=== PATIENT | female | born 1965 | race Caucasian/White ===

== ENCOUNTER 2017-11-18 16:29 | Inpatient (IN) | payer MEDICAID ==
[~2017-11-18] VITALS: Ht 157.5 cm; Wt 90.3 kg
[~2017-11-18 16:29] MED LIST: ABILIFY10 MG PO; ABILIFY15 MG PO; ABILIFY20 MG; ABILIFY20 MG PO; AMOXICILLIN 50500 M1 PO; AMOXIL 875 MG875 M1 PO; ATIVAN1 MG PO; BACLOFEN 10 MG10 MG PO; BACTRIM DS TAB1 EACH PO; BENZTROPINE MES1 MG; BENZTROPINE MES1 MG PO; BUDEPRION XL300 MG; BUDEPRION XL300 MG PO; CELEXA 20 MG TA20 M1 PO; CELEXA 20 MG TA20 MG PO; CLONAZEPAM; CLONAZEPAM 1 MG1 M1; CLONAZEPAM 1 MG1 M1 PO; CLONAZEPAM PO; COLACE 100 MG100 MG; COLACE 100 MG100 MG PO; COLACE100 MG PO; CYCLOBENZAPRINE; DESYREL100 MG; DESYREL100 MG PO; DOCUSATE SODIU100 MG PO; ESKALITH300 MG PO; FLAGYL500 MG PO; FLEXERIL PO; GABAPENTIN 100100 MG PO; GLUCOPHAGE500 MG PO; HAIR, SKIN & N1 EAC1 PO; HYDROCHLOROTHIA25 M1 PO; HYDROCODON-ACE1 EAC7 PO; JANUVIA100 MG PO; K-DUR10 ME1 PO; KEFLEX500 M1 PO; LISINOPRIL10 MG; LISINOPRIL20 MG; LITHIUM CARBON300 M7; LITHIUM CARBON300 M7 PO; LITHIUM CARBON600 MG; LORTAB 5 MG/5001 TAB PO; MOBIC7.5 M1 PO; NAPROSYN500 MG PO; NEURONTIN 400M400 M2 PO; NORCO 5-325 TA1 EACH PO; OMEPRAZOLE; PERCOCET 5-3251 EACH PO; PRENATAL PO; PRENATAL VITAM1 EAC6; PREVACID15 MG; PREVACID15 MG PO; PRILOSEC 20 MG20 MG PO; PRINZIDE 20-121 EACH; PROVENTIL PO; ROBAXIN 750 MG750 M1 PO; SYMBICORT160 MCG/4.; SYMBICORT80 MCG/4.1; SYMBICORT80 MCG/4.1 INH; ULTRAM 50MG TAB50 MG PO; VITAMIN D-32000 UNIT PO; WELLBUTRIN SR150 MG PO; ZOCOR 20 MG TAB20 M1 PO; ZYPREXA; ZYRTEC 10 MG TA10 MG PO; ZYRTEC10 M2 PO
[2017-11-18 16:42] VITALS: BP 137/81
[2017-11-18] MEDS ORDERED: DICLOFENAC SOD50 M1 PO (16:47)
[2017-11-18] MEDS ORDERED: PROAIR HFA8.5 GM INH (16:48)
[2017-11-18] MEDS ORDERED: ZANAFLEX4 MG PO (16:48)
[2017-11-18] MEDS ORDERED: IRON325 PO (16:49)
[2017-11-18] MEDS ORDERED: LIPITOR10 MG PO (16:49)
[2017-11-18] MEDS ORDERED: SYMBICORT80 MCG/4.1 INH (16:49)
[2017-11-18] MEDS ORDERED: FLONASE 0.05%50 MCG NASAL (16:49)
[2017-11-18] MEDS ORDERED: TRAZODONE HCL100 MG PO (16:50)
[2017-11-18] MEDS ORDERED: SINGULAIR 10 MG10 M1 PO (16:50)
[2017-11-18] MEDS ORDERED: GLUCOPHAGE XR750 MG PO (16:50)
[2017-11-18] MEDS ORDERED: VITAMIN D3400 UNIT PO (16:50)
[2017-11-18] MEDS ORDERED: UNICOMPLEX M TA1 TA1 PO (16:51)
[2017-11-18] MEDS ORDERED: FISH OIL 1,001000 M2 PO (16:51)
[2017-11-18] MEDS ORDERED: HEARTBURN TREAT15 MG PO (16:51)
[2017-11-18] MEDS ORDERED: CLONAZEPAM 0.50.5 M1 PO (16:52)
[2017-11-18] MEDS ORDERED: ARIPIPRAZOLE15 MG PO (16:52)
[2017-11-18] MEDS ORDERED: BENZTROPINE MES1 MG PO (16:52)
[2017-11-18] MEDS ORDERED: LEXAPRO 10 MG T10 M1 PO (16:52)
[2017-11-18] MEDS ORDERED: AMITRIPTYLINE100 MG PO (16:53)
[2017-11-18 17:13] LABS: ABSOLUTE LYMPHOCYTES 2.9 thou/uL (0.8-5.3); ABSOLUTE MONOCYTES 1.1 thou/uL (0.0-1.2); ABSOLUTE NEUTROPHILS 5.6 thou/uL (1.6-8.1); BASOPHILS 0.4 %; EOSINOPHILS 0.4 %; HEMATOCRIT 38.3 % (37.0-47.0); HEMOGLOBIN 12.7 gm/dL (12.0-15.0); LYMPHOCYTES 29.9 %; MCH 29.1 pg (26.0-34.0); MCHC 33.1 g/dL (28.0-37.0); MCV 87.7 fL (80.0-100.0); MONOCYTES 11.3 %; MPV 7.3 fl. (7.2-11.1); NUCLEATED RBCS 0 /100WBC; PLATELET COUNT* 325 thou/uL (150-400); RBC 4.36 mil/uL (4.20-5.00); WBC 9.7 thou/uL (4.0-11.0)
[2017-11-18 17:23] LABS: ANION GAP 6 mmol/L (7-16); BUN 12 mg/dL (7-18); CALCIUM 8.9 mg/dL (8.5-10.1); CHLORIDE 92 mmol/L (98-107); CO2 30 mmol/L (21-32); CREATININE 0.7 mg/dL (0.6-1.3); GLUCOSE 149 mg/dL (70-99); POTASSIUM 4.2 mmol/L (3.5-5.1); SODIUM 128 mmol/L (136-145)
[2017-11-18 17:28] LABS: ALBUMIN 3.1 g/dL (3.4-5.0); ALKALINE PHOSPHATASE 87 U/L (46-116); SGOT 16 U/L (15-37); SGPT 23 U/L (30-65); TOTAL BILIRUBIN 0.2 mg/dL (<0.1-1.0); TOTAL PROTEIN 7.1 g/dL (6.4-8.2); TROPONIN-I LEVEL <0.06 ng/mL (<0.06)
[2017-11-18 17:33] LABS: URINE BILIRUBIN NEGATIVE (Negative); URINE BLOOD NEGATIVE (Negative); URINE CLARITY CLEAR; URINE COLOR YELLOW; URINE GLUCOSE-RANDOM NEGATIVE (Negative); URINE KETONES NEGATIVE (Negative); URINE LEUKOCYTES-REFLEX NEGATIVE (Negative); URINE NITRITE-REFLEX NEGATIVE (Negative); URINE PROTEIN NEGATIVE (Negative); URINE SPECIFIC GRAVITY <= 1.005 (1.005-1.030); URINE UROBILINOGEN 0.2 E.U./dl (0.2-1.0)
[2017-11-18 19:34] VITALS: BP 122/83
[2017-11-18 19:55] VITALS: BP 133/71
[2017-11-19 04:21] LABS: CALCIUM 9.1 mg/dL (8.5-10.1); CREATININE 0.7 mg/dL (0.6-1.3); MAGNESIUM 1.9 mg/dL (1.8-2.4); POTASSIUM 4.9 mmol/L (3.5-5.1)
[2017-11-19 04:40] LABS: HEMOGLOBIN 13.8 gm/dL (12.0-15.0); MCHC 32.9 g/dL (28.0-37.0); MCV 88.3 fL (80.0-100.0); MPV 7.5 fl. (7.2-11.1); RBC 4.75 mil/uL (4.20-5.00); RDW-CV 16.3 % (10.5-14.5); WBC 7.7 thou/uL (4.0-11.0)
--- NOTE | 2017-11-19 05:12 | NUR ---
PATIENT ARRIVED TO UNIT AT 1947 FROM THE ER. ALERT AND ORIENTED X 4. VITALS STABLE ON 2L OF OXYGEN. ORIENTED TO ROOM AND STAFF. FLUIDS INFUSING PER ORDER. UP SBA TO BATHROOM. VOIDING FREQUENTLY. NONPRODUCTIVE COUGH. EDUCATED ON FALL PREVENTION. HOURLY ROUNDS. NURSING WILL CONTINUE TO MONITOR.
[2017-11-19 09:59] VITALS: BP 118/70
[2017-11-19 16:49] VITALS: BP 121/69
--- NOTE | 2017-11-19 17:18 | NUR ---
ASSUMED CARE OF PATIENT AFTER MORNING REPORT. ALERT AND ORIENTED X4. ASSESSMENT COMPLETED AND CHARTED. VSS ON 2 LITERS 02. FLUIDS INFUSED AND SALINE LOCKED AFTER LAST BAG ORDERED. ANTIBIOTIC AND SOLUMEDROL ADMINISTERED ORDER. PATIENT HAD CONCERNS ABOUT HER COUGH. MUCINEX, TESSALON PEARLS, AND CEPACOL LOZENGES ORDERED AND GIVEN. PATIENT HAS HAD BREATHING TREATMENTS GIVEN BY RT TODAY. RESTING COMFORTABLY IN BED AT THIS TIME. HOURLY ROUNDS MAINTAINED, CALL LIGHT WITHIN REACH, NURSING WILL CONTINUE TO MONITOR.
--- NOTE | 2017-11-19 17:33 | NUR ---
ASSUMED CARE OF PATIENT AFTER MORNING REPORT. ALERT AND ORIENTED X4. ASSESSMENT COMPLETED AND CHARTED. VSS ON ROOM AIR. FLUIDS INFUSED ORDERED. PAIN HAS BEEN MANAGED WITH IV PAIN MEDICAION. NO COMPLAINTS OF NAUSEA OR SOA. PATIENTS FAMILY CAME TO THE ROOM AND SHORTLY AFTER THAT PATIENT WAS SEEN TRYING TO LEAVE THROUGH THE FIRE ESCAPE DOOR, SETTING OFF THE ALARM. PATIENT THEN WALKED QUICKLY AND QUIETLY PASSED THE NURSES STATION WITH HIS SHOES IN IN HIS HAND, LEAVING A TRAIL OF BLOOD WHERE HE HAD PULLED HIS IV OUT. THIS NIRSE ASKED HIM WHAT WAS WRONG HE PASSED BY BUT HE MADE NO EYE CONTACT AND CONTINUED TO LEAVE THE UNIT. PHYSICIAN AND NURSING NURSING PROJECT COORDINATOR NOTIFIED OF THIS EVENT. PATIENT LEFT THE UNIT AT 1720.
[2017-11-19 20:30] VITALS: BP 129/69
[2017-11-20 04:30] LABS: HEMATOCRIT 40.6 % (37.0-47.0); HEMOGLOBIN 13.2 gm/dL (12.0-15.0); MCH 28.7 pg (26.0-34.0); MCHC 32.5 g/dL (28.0-37.0); MCV 88.2 fL (80.0-100.0); MPV 7.6 fl. (7.2-11.1); RBC 4.6 mil/uL (4.20-5.00); RDW-CV 16.3 % (10.5-14.5); WBC 11.2 thou/uL (4.0-11.0)
[2017-11-20 04:59] LABS: CALCIUM 9.3 mg/dL (8.5-10.1); CREATININE 0.7 mg/dL (0.6-1.3); MAGNESIUM 1.8 mg/dL (1.8-2.4); POTASSIUM 4.7 mmol/L (3.5-5.1)
--- NOTE | 2017-11-20 06:19 | NUR ---
PATIENT HAS SLEPT OFF AND ON DURING THE NIGHT BUT RESTLESS AT TIMES. PATIENT DRINKING ALOT OF WATER. VSS ON 3L 02 VIA NASAL CANNULA. NO C/O SOA OR PAIN. PATIENT DOES STATE THAT HER COUGH IS NOW BECOMING SOMEWHAT PRODUCTIVE. PATIENT INSTRUCTED TO USE CALL LIGHT WHEN NEEDING ASSISTANCE. HOURLY ROUNDS MADE. WILL CONTINUE WITH PLAN OF CARE AND NURSING TO MONITOR.
[2017-11-20 08:00] VITALS: BP 121/68
--- NOTE | 2017-11-20 11:09 | EKG ---
[place] [address] ELECTROCARDIOGRAM REPORT Name: JOHN MENDOZA Room: [address] IN [facility].#: [id number] Admission: 11/18/17 Attend Phys: Philippe Wallace MD Discharge: Date of : 63 Report #: [id number] THIS REPORT FOR: //name// [facility] ED Test Date: 2017-11-18 Test Time: 17:12:39 Pat Name: JOHN MENDOZA Department: Room: Gender: F Crew Leader Gluing: MS : 1965 Requested By: Ai Hayes Order Number: [id number] MD: Andrew Diaz Measurements Intervals [place] Rate: 87 P: 53 UT: 161 QRS: 24 QRSD: 89 T: 35 QT: 356 QTc: 429 Interpretive Statements Sinus rhythm Baseline wander in lead(s) I,V1,V2,V4 Compared to ECG 09/13/2011 11:56:55 No significant changes Electronically Signed On 11-20-2017 11:09:46 CDT by Andrew Diaz [email or web address] <ELECTRONICALLY SIGNED> By: Andrew Diaz MD, [facility] 11/20/17 1109 171 171 Andrew Diaz MD, [facility] /EPI
--- NOTE | 2017-11-20 14:42 | NUR ---
SPOKE WITH PT. SHE WAS UP IN ROOM PACKING HER THINGS TO GO TO 3W. SHE SAID SHE LIVES IN AN APT. HER S.O. LIVES WITH HER. SHE IS INDEPENDENT AT HOME. SHE DOES NOT HAVE A CAR. HER S.O. DOES NOT EITHER. HE HAS A BICYCLE. PT.'S MOM DRIVES HER ON [place]. NO HX OF DME. NO HOME O2. SHE HAS A CELL PHONE. SHE DECLINED [employer]. 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 CM WILL FOLLOW.
[2017-11-20 16:10] VITALS: BP 137/69
--- NOTE | 2017-11-20 17:50 | NUR ---
PT TRANSFERED TO ROOM 210 THIS AFTERNOON, RECIEVED REPORT FROM MARQUIS KUMAR. MO SALINAS REVIEWED AND AGREE WITH THE CHARTING. PT A/O X4, ON 2L O2 PER NC. UP AD WYATT IN ROOM. INSULIN GIVEN PER AUG. PT CONCERNED THAT SHE HAS NOT HAD BM SINCE THU, MIRALAX GIVEN. PT USES CALL LIGHT APPROPRIALTY FOR NEEDS. RESTING IN ROOM AT THIS TIME. WILL CONTINUE WITH PLAN OF CARE.
[2017-11-20 20:00] VITALS: BP 177/60
[2017-11-20 22:00] VITALS: BP 136/70
[2017-11-21 00:39] VITALS: BP 141/75
--- NOTE | 2017-11-21 04:31 | NUR ---
ASSUMED PT CARE AT 1930. NURSING ASSESSMENT COMPLETED AT START OF SHIFT. PT VOICED NO CONCERNS THIS SHIFT. PT MED SURG STATUS. HOURLY ROUNDING COMPLETED, NO FALLS THIS SHIFT. CALL LIGHT REMAINS WITHIN REACH. PT PROGRESSING TOWARDS GOALS.
[2017-11-21 04:49] LABS: HEMOGLOBIN 13.5 gm/dL (12.0-15.0); MCH 28.9 pg (26.0-34.0); MCHC 33.1 g/dL (28.0-37.0); MCV 87.6 fL (80.0-100.0); MPV 7.5 fl. (7.2-11.1); RBC 4.68 mil/uL (4.20-5.00); RDW-CV 16.5 % (10.5-14.5); WBC 10.6 thou/uL (4.0-11.0)
[2017-11-21 05:08] LABS: CALCIUM 9.1 mg/dL (8.5-10.1); CREATININE 0.8 mg/dL (0.6-1.3); POTASSIUM 4.4 mmol/L (3.5-5.1)
--- NOTE | 2017-11-21 08:12 | NUR ---
PT RESTING IN BED, APPEARS ALERT O X 4, DENIES CHEST PAIN,SOB,, PAIN OR DISCOMFORT, O2 AT 1.5 L PER NC
[2017-11-21 08:19] VITALS: BP 137/72
[2017-11-21] MEDS ORDERED: PREDNISONE 10 M10 MG PO (11:29)
[2017-11-21 11:30] VITALS: BP 137/72; BP 157/77
[2017-11-21] MEDS ORDERED: CEFDINIR300 MG PO ×2 (12:32→12:35)
[2017-11-21 13:36] VITALS: BP 137/72
[2017-11-21 13:37] VITALS: BP 137/72
[2017-11-21 13:39] VITALS: BP 137/72
== END 2017-11-21 13:35 | disposition home or self-care (01) | DRG 189 ==
LOC: M.ERS 16:29 → M.TBA-ER 18:53 → M.ORTHSURG 18:53 → M.2W 11-20 14:21
PROVIDERS: Nurse Practitioner Family; ADMIT Internal Medicine
DX: J96.01 Acute respiratory failure with hypoxia (principal); J44.1 Chronic obstructive pulmonary disease with (acute) exacerbation; J45.901 Unspecified asthma with (acute) exacerbation; B37.0 Candidal stomatitis; E87.1 Hypo-osmolality and hyponatremia; E44.1 Mild protein-calorie malnutrition; E11.9 Type 2 diabetes mellitus without complications; I10 Essential (primary) hypertension; J20.8 Acute bronchitis due to other specified organisms; B19.20 Unspecified viral hepatitis C without hepatic coma; F31.9 Bipolar disorder, unspecified; E66.9 Obesity, unspecified; Z68.36 Body mass index [BMI] 36.0-36.9, adult; Z98.891 History of uterine scar from previous surgery; Z87.891 Personal history of nicotine dependence; Z79.51 Long term (current) use of inhaled steroids; Z79.84 Long term (current) use of oral hypoglycemic drugs; Z79.899 Other long term (current) drug therapy; Z88.8 Allergy status to other drugs, medicaments and biological substances

== ENCOUNTER 2017-12-31 12:16 | Emergency (ER) | payer MEDICAID ==
[~2017-12-31] VITALS: Ht 157.5 cm; Wt 85.3 kg
[~2017-12-31 12:16] MED LIST changes: +AMITRIPTYLINE100 MG PO; +ARIPIPRAZOLE15 MG PO; +CEFDINIR300 MG PO; +CLONAZEPAM 0.50.5 M1 PO; +DICLOFENAC SOD50 M1 PO; +FISH OIL 1,001000 M2 PO; +FLONASE 0.05%50 MCG NASAL; +GLUCOPHAGE XR750 MG PO; +HEARTBURN TREAT15 MG PO; +IRON325 PO; +LEXAPRO 10 MG T10 M1 PO; +LIPITOR10 MG PO; +PREDNISONE 10 M10 MG PO; +PROAIR HFA8.5 GM INH; +SINGULAIR 10 MG10 M1 PO; +TRAZODONE HCL100 MG PO; +UNICOMPLEX M TA1 TA1 PO; +VITAMIN D3400 UNIT PO; +ZANAFLEX4 MG PO
[2017-12-31] MEDS ORDERED: HEARTBURN RELIE10 MG PO (12:32)
[2017-12-31] MEDS ORDERED: MOBIC15 MG PO (12:33)
[2017-12-31] MEDS ORDERED: SYMBICORT80 MCG/4.1 INH (12:33)
[2017-12-31] MEDS ORDERED: CLARITIN10 MG PO (12:34)
[2017-12-31 12:59] LABS: HEMATOCRIT 43.3 % (37.0-47.0); HEMOGLOBIN 14.3 gm/dL (12.0-15.0); MCH 29.1 pg (26.0-34.0); MCHC 32.9 g/dL (28.0-37.0); MCV 88.3 fL (80.0-100.0); MPV 7.6 fl. (7.2-11.1); NUCLEATED RBCS 0 /100WBC; PLATELET COUNT* 345 thou/uL (150-400); RBC 4.91 mil/uL (4.20-5.00); RDW-CV 16.6 % (10.5-14.5); WBC 6.6 thou/uL (4.0-11.0)
[2017-12-31 13:09] LABS: CALCIUM 9.4 mg/dL (8.5-10.1); CREATININE 0.9 mg/dL (0.6-1.3); POTASSIUM 4.4 mmol/L (3.5-5.1)
[2017-12-31 13:20] LABS: ALBUMIN 3.5 g/dL (3.4-5.0); TOTAL BILIRUBIN 0.1 mg/dL (<0.1-1.0); TOTAL PROTEIN 7.6 g/dL (6.4-8.2)
[2017-12-31 13:44] LABS: ABSOLUTE LYMPHOCYTES 0.3 thou/uL (0.8-5.3); ABSOLUTE MONOCYTES 0.1 thou/uL (0.0-1.2); ABSOLUTE NEUTROPHILS 6.2 thou/uL (1.6-8.1)
[2017-12-31 13:45] LABS: PLATELET ESTIMATE ADEQUATE; POLYCHROMASIA Occasional
[2017-12-31] MEDS ORDERED: VENTOLIN HFA 1818 GM INH (14:00)
[2017-12-31] MEDS ORDERED: LEVAQUIN 750 M750 MG PO (14:00)
[2017-12-31] MEDS ORDERED: TESSALON PERLE100 MG PO (14:00)
[2017-12-31 14:11] VITALS: BP 157/53
--- NOTE | 2017-12-31 15:15 | EKG ---
[place] [address] ELECTROCARDIOGRAM REPORT Name: JOHN MENDOZA Room: [facility]#: [id number] Admission: 12/31/17 Attend Phys: Discharge: 12/31/17 Date of : 63 Report #: [id number] THIS REPORT FOR: //name// [facility] ED Test Date: 2017-12-31 Test Time: 13:37:23 Pat Name: JOHN MENDOZA Department: Room: Gender: F Food Production Manager: BRANDON : 1965 Requested By: Iggy Torres Order Number: [id number] MD: Jesse Arguelles Measurements Intervals [place] Rate: 102 P: 47 [place]: 159 QRS: 19 QRSD: 86 T: 30 QT: 325 QTc: 424 Interpretive Statements Sinus tachycardia Compared to ECG 11/18/2017 17:12:39 Sinus rhythm no longer present Electronically Signed On 12-31-2017 15:15:21 CDT by Jesse Arguelles [email or web address] <ELECTRONICALLY SIGNED> By: Jesse Arguelles MD, [facility] 12/31/17 1515 36 36 Jesse Arguelles MD, [facility] /EPI
== END 2017-12-31 14:12 | disposition home or self-care (01) ==
LOC: M.ERS 12:16
PROVIDERS: Nurse Practitioner Family
DX: J40 Bronchitis, not specified as acute or chronic (principal); I10 Essential (primary) hypertension; E11.9 Type 2 diabetes mellitus without complications; J44.9 Chronic obstructive pulmonary disease, unspecified; F31.9 Bipolar disorder, unspecified; E66.9 Obesity, unspecified; Z88.6 Allergy status to analgesic agent

== ENCOUNTER 2018-01-30 12:40 | Inpatient (IN) | payer MEDICAID ==
[~2018-01-30] VITALS: Ht 157.5 cm; Wt 88.5 kg
[~2018-01-30 12:40] MED LIST changes: +CLARITIN10 MG PO; +HEARTBURN RELIE10 MG PO; +LEVAQUIN 750 M750 MG PO; +MOBIC15 MG PO; +TESSALON PERLE100 MG PO; +VENTOLIN HFA 1818 GM INH
[2018-01-30 12:43] VITALS: BP 160/67
[2018-01-30 13:26] LABS: ABSOLUTE BASOPHILS 0.1 thou/uL (0.0-0.2); ABSOLUTE EOSINOPHILS 0.1 thou/uL (0.0-0.7); ABSOLUTE LYMPHOCYTES 1.6 thou/uL (0.8-5.3); ABSOLUTE MONOCYTES 0.9 thou/uL (0.0-1.2); ABSOLUTE NEUTROPHILS 6.3 thou/uL (1.6-8.1); BASOPHILS 0.9 %; HEMATOCRIT 39.6 % (37.0-47.0); HEMOGLOBIN 13.2 gm/dL (12.0-15.0); LYMPHOCYTES 17.9 %; MCH 28.7 pg (26.0-34.0); MCHC 33.3 g/dL (28.0-37.0); MCV 86.2 fL (80.0-100.0); MPV 7.7 fl. (7.2-11.1); NUCLEATED RBCS 0 /100WBC; PLATELET COUNT* 283 thou/uL (150-400); POLYS 70.2 %; RBC 4.59 mil/uL (4.20-5.00); RDW-CV 16.8 % (10.5-14.5)
[2018-01-30 13:37] LABS: ANION GAP 5 mmol/L (7-16); BUN 9 mg/dL (7-18); CALCIUM 9.1 mg/dL (8.5-10.1); CHLORIDE 94 mmol/L (98-107); CO2 29 mmol/L (21-32); CREATININE 0.7 mg/dL (0.6-1.3); GLUCOSE 159 mg/dL (70-99); SODIUM 128 mmol/L (136-145)
[2018-01-30 13:38] LABS: POTASSIUM 4.7 mmol/L (3.5-5.1)
[2018-01-30 13:44] LABS: ALBUMIN 3.3 g/dL (3.4-5.0); ALKALINE PHOSPHATASE 80 U/L (46-116); SGOT 24 U/L (15-37); SGPT 26 U/L (30-65); TOTAL BILIRUBIN 0.2 mg/dL (<0.1-1.0); TOTAL PROTEIN 7.3 g/dL (6.4-8.2); TROPONIN-I LEVEL <0.06 ng/mL (<0.06)
[2018-01-30 15:01] VITALS: BP 118/89
--- NOTE | 2018-01-30 18:34 | NUR ---
ALERT AND ORIENTED X4. UP STAND BY ASSIST IN ROOM. IV IS PATENT AND INFUSING. DENIES NEED FOR PAIN MEDICATION. DENIES NAUSEA. PATIENT HAS HAD SOME DIZZINESS SINCE ARRIVING TO FLOOR. TOLERATING DIET. VSS ON 2L O2. CALL LIGHT IS WITHIN REACH. HOURLY ROUNDS HAVE BEEN MAINTAINED SINCE ARRIVING TO FLOOR. NURSING WILL CONTINUE TO MONITOR.
[2018-01-30 20:30] VITALS: BP 143/83
--- NOTE | 2018-01-31 04:43 | NUR ---
UP WITH STAND BY ASSIST TO BATHROOM. ALERT AND ORIENTED X4. O2 SAT 91 % ON O2 AT 2L/NC AT REST. CONTINUES ON BREATHING TREATMENT, SOLUMEDROL AND IV ANTIBIODICS. CALL LIGHT WITHIN REACH. BEDALARM ON.
[2018-01-31 08:00] VITALS: BP 111/64
--- NOTE | 2018-01-31 10:31 | EKG ---
[place] [address] ELECTROCARDIOGRAM REPORT Name: JOHN MENDOZA Room: [address] ADM IN M.R.#: [id number] Admission: 01/30/18 Attend Phys: Shen Bourgeois, Discharge: Date of : 63 Report #: [id number] THIS REPORT FOR: //name// [facility] ED Test Date: 2018-01-30 Test Time: 13:08:24 Pat Name: JOHN MENDOZA Department: Room: [facility] Gender: F Desilverizer: MS : 1965 Requested By: Kyaw Clements Order Number: [id number] MD: Tonio Cavanaugh Measurements Intervals [place] Rate: 96 P: 46 RI: 200 QRS: 28 QRSD: 81 T: 53 QT: 345 QTc: 436 Interpretive Statements Sinus rhythm Borderline prolonged RI interval Baseline wander in lead(s) V1 Compared to ECG 12/31/2017 13:37:23 Sinus tachycardia no longer present Electronically Signed On 01-31-2018 10:31:35 CDT by Tonio Cavanaugh [email or web address] <ELECTRONICALLY SIGNED> By: Ewelina Cavanaugh MD, [facility] 01/31/18 1031 1308 1308 Ewelina Cavanaugh MD, [facility] /EPI
[2018-01-31 15:31] VITALS: BP 116/57
--- NOTE | 2018-01-31 19:44 | NUR ---
PATIENT REMAINED ALERT AND ORIENTED X'S 4. VITAL SIGNS AND SPO2 STABLE. IV CLEAN, FLUIDS INFUSING. PATIENT DENIED PAIN THROUGHTOUT SHIFT. RECIEVED BREATHING TREATMENTS. TOLERATED DIET, NO NAUSEA AND VOMITING. VOIDED WITHOUT ISSUE. COMPLETED HOURLY ROUNDING. CALL LIGHT MAHNAZ LEWIS. WILL CONTINUE TO MONITOR.
[2018-01-31 21:00] VITALS: BP 122/62
--- NOTE | 2018-02-01 05:17 | NUR ---
UP AD WYATT IN ROOM TO BATHROOM. CONTINUES TO RECEIVE BREATHING TREATMENTS AND IV ANTIBIODICS. REMAINS ON O2@ 2L/NC WITH O2 SAT 91%. NO C/O PAIN OR NAUSEA. CALL LIGHT WITHIN REACH.
[2018-02-01 08:30] VITALS: BP 112/61
--- NOTE | 2018-02-01 10:38 | NUR ---
ASSUMED PT CARE AT 0730, FULL ASSESMENT DONE CHARTED. PT A/O X4, C/O THROAT IRRITATION, DENIES PAIN. VSS, PT FOUND OFF O2 SAT WAS 88%, PLACED BACK ON 3L, SAT CAME UP TO 92-93%. PT INSTRUCTED TO BREATH IN THROUGH HER NOSE SHE IS MOUTH BREATHING. PT STATES SHE HAS NOT HAD A BM IN 2-3 DAYS, STARTED ON STOOL SOFTNER THIS AM. IV ABX BEING INFUSED. FALL PRECAUTIONS IN PLACE. WILL CONTINUE WITH PLAN OF CARE.
--- NOTE | 2018-02-01 11:10 | EKG ---
[place] [address] ELECTROCARDIOGRAM REPORT Name: JOHN MENDOZA Room: [address] ADM IN M.R.#: [id number] Admission: 01/30/18 Attend Phys: Shen Bourgeois, Discharge: Date of : 63 Report #: [id number] THIS REPORT FOR: //name// Test Date: 2018-01-31 Test Time: 14:04:01 Pat Name: JOHN MENDOZA Department: Room: [address] Gender: F Forensic Investigator: : 1965 Requested By: Shen Bourgeois Order Number: [id number] Joanna MD: Toby Wynne Measurements Intervals [place] Rate: 91 P: 65 UT: 177 QRS: 46 QRSD: 100 T: 67 QT: 360 QTc: 443 Interpretive Statements Sinus rhythm Compared to ECG 01/30/2018 13:08:24 No significant changes Electronically Signed On 02-01-2018 11:10:22 CDT by Toby Wynne [email or web address] <ELECTRONICALLY SIGNED> By: Toby Wynne MD, [facility] 02/01/18 1110 1404 1404 Toby Wynne MD, [facility] /EPI
[2018-02-01 15:59] VITALS: BP 118/63
[2018-02-01 20:00] VITALS: BP 141/66
[2018-02-02 04:29] LABS: ABSOLUTE LYMPHOCYTES 3.1 thou/uL (0.8-5.3); ABSOLUTE MONOCYTES 1.1 thou/uL (0.0-1.2); ABSOLUTE NEUTROPHILS 6.1 thou/uL (1.6-8.1); BASOPHILS 0.2 %; EOSINOPHILS 0.3 %; HEMATOCRIT 39.4 % (37.0-47.0); HEMOGLOBIN 12.5 gm/dL (12.0-15.0); LYMPHOCYTES 30.2 %; MCH 28.2 pg (26.0-34.0); MCHC 31.8 g/dL (28.0-37.0); MCV 88.6 fL (80.0-100.0); MONOCYTES 10.2 %; MPV 7.6 fl. (7.2-11.1); NUCLEATED RBCS 0 /100WBC; PLATELET COUNT* 306 thou/uL (150-400); POLYS 59.1 %; RBC 4.45 mil/uL (4.20-5.00); RDW-CV 16.8 % (10.5-14.5); WBC 10.4 thou/uL (4.0-11.0)
[2018-02-02 04:59] LABS: ALBUMIN 3.1 g/dL (3.4-5.0); ALKALINE PHOSPHATASE 67 U/L (46-116); ANION GAP < 0 mmol/L (7-16); BUN 15 mg/dL (7-18); CALCIUM 8.6 mg/dL (8.5-10.1); CHLORIDE 97 mmol/L (98-107); CO2 43 mmol/L (21-32); CREATININE 0.7 mg/dL (0.6-1.3); GLUCOSE 119 mg/dL (70-99); POTASSIUM 3.4 mmol/L (3.5-5.1); SGOT 13 U/L (15-37); SGPT 22 U/L (30-65); SODIUM 137 mmol/L (136-145); TOTAL BILIRUBIN 0.1 mg/dL (<0.1-1.0); TOTAL PROTEIN 6.6 g/dL (6.4-8.2)
--- NOTE | 2018-02-02 05:24 | NUR ---
PATIENT HAS SLEPT WELL THROUGHOUT THE NIGHT WITHOUT ANY COMPLAINTS. VSS ON 3L 02 VIA NASAL CANNULA. PATIENT 02 SATURATION DECREASES WHEN SHE REMOVES OXYGEN. PATIENT ENCOURAGED TO LEAVE NASAL CANNULA IN. PATIENT PULLED IV OUT BY ACCIDENT. NOTIFIED AND OK'D TO LEAVE IV OUT. PATIENT IS UP AD-WYATT AND STEADY. PATIENT INSTRUCTED TO USE CALL LIGHT WHEN NEEDING ASSISTANCE. HOURLY ROUNDS MADE. WILL CONTINUE WITH PLAN OF CARE AND NURSING TO MONITOR.
[2018-02-02 08:00] VITALS: BP 115/50
--- NOTE | 2018-02-02 14:00 | NUR ---
PT.ALERT AND ORIENTED. STATED HER S.O. LIVES WITH HER. HER MOM IS SUPPORTIVE AND DRIVES HER TO ,[place]. SHE AND HER S.O. DO NOT HAVE A CAR. HE HAS A BIKE. SHE USES NO DME OR O2. NO HX OF HH. SHE IS CONCERNED ABOUT MAYBE NEEDING O2 UPON DISCHARGE. DISCUSSED PROCESS OF R.T.CHECKING RESTING AND EXERCISE SATURATIONS. IF SHE QUALIFYS, CASE MANAGEMENT WILL CALL HER INSURANCE FOR AUTHORIZATION. POSSIBLE DISCHARGE FOR TOMORROW.
[2018-02-02 16:15] VITALS: BP 114/64
--- NOTE | 2018-02-02 16:17 | NUR ---
PATIENT REMAINED ALERT AND ORIENTED X'S 3-4. VITAL SIGNS AND SPO2 STABLE. RECIEVED BREATHING TREATMENTS. NO IV ACCESS. TOLERATED DIET, NO NAUSEA AND VOMTING. PATIENT DENIED PAIN THROUGHOUT SHIFT. BLOOD SUGARS HAVE BEEN UNDER CONTROL WITH NO NEED FOR INSULIN SLIDING SCALE TODAY. COMPLETED HOULRY ROUNDING, CALL LIGHT WITHIN REACH. WILL CONTINUE TO MONITOR.
[2018-02-02 20:40] VITALS: BP 127/55
--- NOTE | 2018-02-03 07:38 | NUR ---
PATIENT HAS SLEPT WELL THROUGHOUT THE NIGHT WITHOUT ANY ISSUES. NO C/O PAIN. VSS ON 3L 02 VIA NASAL CANNULA. PATIENT UP AD-WYATT AND STEADY. PATIENT INSTRUCTED TO USE CALL LIGHT WHEN NEEDING ASSISTANCE. HOURLY ROUNDS MADE. WILL CONTINUE WITH PLAN OF CARE.
[2018-02-03 08:00] VITALS: BP 110/52
[2018-02-03 11:39] VITALS: BP 110/52
--- NOTE | 2018-02-03 15:08 | NUR ---
ATTEMPT TO CALL PT'S DAUGHTER TO PICK HER UP. MESSAGE LEFT BUT NO RETURN CALL
[2018-02-03 16:06] VITALS: BP 110/52
[2018-02-03] MEDS ORDERED: AUGMENTIN 875-1 EACH PO (16:13)
[2018-02-03] MEDS ORDERED: PREDNISONE 10 M10 M1 PO (16:14)
--- NOTE | 2018-02-03 16:49 | NUR ---
PER RN/R.T. PT.NEEDS O2 CONTINUOUSLY RESTING O2 SAT IS 84%. PREAUTHORIZATION OBTAINED FROM [place] AT [place] [employer]ICA[employer] #[id number]. FACE SHEET,O2 SATS,ORDER AND PT.CARE NOTE FAXED TO [facility]. SHE CALLED AND SAID SHE RECEIVED INFORMAITON AND WILL DELIVER A PORTABLE TANK TO PT.S ROOM BUT MAY BE AN HR OR SO. PT.INFORMED.
--- NOTE | 2018-02-03 16:58 | NUR ---
PT INFORMED THAT OXYGEN WILL NOT BE DELIVERED UNTIL APPROX 6 PM PER [facility] PT STATES SHE DOES NOT WANT TO WAIT UNTIL 6 PM AND WANTS TO LEAVE. DISCUSSED WITH PT THE DANGERS OF BEING WITHOUT HER OXYGEN SHE NEEDS IT CONTINUOUSLY. PT STATES SHE LIVES APPROX 4 MIN FROM THE HOSPITALS. PT CALLED [facility] AND THEY STATED THEY COULD DELIVER TO HER HOME AT APPROX 1715. PT LEFT UNIT WITH STEADY GAIT. NO SOA
== END 2018-02-03 17:24 | disposition home or self-care (01) | DRG 189 ==
LOC: M.ERS 12:40 → M.TBA-ER 14:38 → M.ORTHSURG 15:09
PROVIDERS: Emergency Medicine Emergency Medical Services; Internal Medicine; ADMIT Family Medicine
DX: J96.01 Acute respiratory failure with hypoxia (principal); J44.0 Chronic obstructive pulmonary disease with (acute) lower respiratory infection; E87.2 Acidosis; F31.9 Bipolar disorder, unspecified; I10 Essential (primary) hypertension; E66.01 Morbid (severe) obesity due to excess calories; F17.210 Nicotine dependence, cigarettes, uncomplicated; K21.9 Gastro-esophageal reflux disease without esophagitis; E11.9 Type 2 diabetes mellitus without complications; B19.20 Unspecified viral hepatitis C without hepatic coma; F41.9 Anxiety disorder, unspecified; Z88.6 Allergy status to analgesic agent; Z68.35 Body mass index [BMI] 35.0-35.9, adult; Z88.8 Allergy status to other drugs, medicaments and biological substances; Z82.5 Family history of asthma and other chronic lower respiratory diseases

== ENCOUNTER 2018-12-14 16:19 | Emergency (ER) | payer MEDICAID ==
[~2018-12-14] VITALS: Ht 157.5 cm; Wt 91.2 kg
[~2018-12-14 16:19] MED LIST changes: +AUGMENTIN 875-1 EACH PO; +PREDNISONE 10 M10 M1 PO
[2018-12-14] MEDS ORDERED: AMITRIPTYLINE100 MG PO (16:39)
[2018-12-14] MEDS ORDERED: MELOXICAM15 MG PO (16:40)
[2018-12-14] MEDS ORDERED: LEXAPRO 10 MG T10 M1 PO (16:41)
[2018-12-14] MEDS ORDERED: BENZTROPINE MES1 MG PO (16:43)
[2018-12-14] MEDS ORDERED: KLONOPIN0.5 MG PO (16:43)
[2018-12-14] MEDS ORDERED: SYMBICORT80 MCG/4.1 INH (16:43)
[2018-12-14] MEDS ORDERED: SEA-OMEGA 1,001 EACH PO (16:43)
[2018-12-14] MEDS ORDERED: PROTONIX40 M1 PO (16:44)
[2018-12-14] MEDS ORDERED: ZYRTEC10 M5 PO (16:44)
[2018-12-14 17:09] LABS: URINE BILIRUBIN NEGATIVE (Negative); URINE BLOOD NEGATIVE (Negative); URINE CLARITY CLEAR; URINE COLOR YELLOW; URINE GLUCOSE-RANDOM NEGATIVE (Negative); URINE KETONES NEGATIVE (Negative); URINE LEUKOCYTES-REFLEX 1+ (Negative); URINE NITRITE-REFLEX NEGATIVE (Negative); URINE PROTEIN NEGATIVE (Negative); URINE SPECIFIC GRAVITY 1.015 (1.005-1.030); URINE UROBILINOGEN 0.2 E.U./dl (0.2-1.0)
[2018-12-14 17:23] LABS: BACTERIA-REFLEX 1-9 Few /HPF (None Seen); CASTS None Seen /LPF (None Seen); CRYSTALS None Seen /LPF (None Seen); MUCUS None Seen strn/LPF (None Seen); SQUAMOUS >10 Many /LPF (0-3); URINE WBC-REFLEX 6-15 Few /HPF (0-5)
[2018-12-14 17:24] LABS: URINE RBC None Seen /HPF (0-2)
[2018-12-14] MEDS ORDERED: BACTRIM DS TAB1 EACH PO (17:32)
[2018-12-14] MEDS ORDERED: PYRIDIUM100 M1 PO (17:32)
[2018-12-14 17:42] VITALS: BP 147/68
== END 2018-12-14 17:43 | disposition home or self-care (01) ==
LOC: M.ERS 16:19
PROVIDERS: Nurse Practitioner Family
DX: S09.8XXA Other specified injuries of head, initial encounter (principal); N39.0 Urinary tract infection, site not specified; F17.210 Nicotine dependence, cigarettes, uncomplicated; I10 Essential (primary) hypertension; E11.9 Type 2 diabetes mellitus without complications; J45.909 Unspecified asthma, uncomplicated; F31.9 Bipolar disorder, unspecified; E66.9 Obesity, unspecified; Z68.36 Body mass index [BMI] 36.0-36.9, adult; Z88.6 Allergy status to analgesic agent; W06.XXXA Fall from bed, initial encounter; Y92.89 Other specified places as the place of occurrence of the external cause; Y93.89 Activity, other specified; Y99.8 Other external cause status

== ENCOUNTER 2019-02-27 18:34 | Emergency (ER) | payer MEDICAID ==
[~2019-02-27] VITALS: Ht 157.5 cm; Wt 83.9 kg
[~2019-02-27 18:34] MED LIST changes: +KLONOPIN0.5 MG PO; +MELOXICAM15 MG PO; +PROTONIX40 M1 PO; +PYRIDIUM100 M1 PO; +SEA-OMEGA 1,001 EACH PO; +ZYRTEC10 M5 PO
[2019-02-27] MEDS ORDERED: KEFLEX500 M1 PO (19:09)
[2019-02-27 19:18] VITALS: BP 132/76
== END 2019-02-27 19:18 | disposition home or self-care (01) ==
LOC: M.ERS 18:34
DX: S61.011A Laceration without foreign body of right thumb without damage to nail, initial encounter (principal); S61.210A Laceration without foreign body of right index finger without damage to nail, initial encounter; E11.9 Type 2 diabetes mellitus without complications; I10 Essential (primary) hypertension; F31.9 Bipolar disorder, unspecified; E66.9 Obesity, unspecified; F17.210 Nicotine dependence, cigarettes, uncomplicated; Z86.19 Personal history of other infectious and parasitic diseases; Z68.33 Body mass index [BMI] 33.0-33.9, adult; Z88.6 Allergy status to analgesic agent; W26.8XXA Contact with other sharp object(s), not elsewhere classified, initial encounter; Y93.89 Activity, other specified; Y92.89 Other specified places as the place of occurrence of the external cause; Y99.8 Other external cause status

== ENCOUNTER 2019-08-29 11:09 | Emergency (ER) | payer MEDICAID ==
[~2019-08-29] VITALS: Ht 157.5 cm; Wt 84.4 kg
[2019-08-29] MEDS ORDERED: XARELTO2.5 MG PO (11:17)
[2019-08-29] MEDS ORDERED: ROBAXIN 750 MG750 MG PO (12:33)
[2019-08-29 13:23] VITALS: BP 129/76
== END 2019-08-29 13:24 | disposition home or self-care (01) ==
LOC: M.ERS 11:09
DX: S39.012A Strain of muscle, fascia and tendon of lower back, initial encounter (principal); S80.01XA Contusion of right knee, initial encounter; S80.02XA Contusion of left knee, initial encounter; S00.03XA Contusion of scalp, initial encounter; D16.22 Benign neoplasm of long bones of left lower limb; E11.9 Type 2 diabetes mellitus without complications; I10 Essential (primary) hypertension; J45.909 Unspecified asthma, uncomplicated; E66.9 Obesity, unspecified; Z98.890 Other specified postprocedural states; Z86.19 Personal history of other infectious and parasitic diseases; Z68.34 Body mass index [BMI] 34.0-34.9, adult; Z88.6 Allergy status to analgesic agent; Z88.8 Allergy status to other drugs, medicaments and biological substances; W18.39XA Other fall on same level, initial encounter; Y93.89 Activity, other specified; Y92.89 Other specified places as the place of occurrence of the external cause; Y99.8 Other external cause status

== ENCOUNTER → 2021-05-16 | Outpatient (CLI) | payer MEDICAID ==
[~2021-05-16] MED LIST changes: +ROBAXIN 750 MG750 MG PO; +XARELTO2.5 MG PO
== END ==
LOC: M.MRI 04-26 11:30
PROVIDERS: ATTEND Orthopaedic Surgery
DX: S83.241A Other tear of medial meniscus, current injury, right knee, initial encounter (principal); M23.91 Unspecified internal derangement of right knee; W19.XXXA Unspecified fall, initial encounter; Y93.89 Activity, other specified; Y92.89 Other specified places as the place of occurrence of the external cause; Y99.8 Other external cause status

== ENCOUNTER → 2021-07-09 | Day surgery (SDC) | payer MEDICAID ==
[~2021-07-09] MED LIST changes: +FISH OIL 1,001000 M3 PO
--- NOTE | 2021-07-12 10:43 | OP ---
[address] [address] OPERATIVE REPORT Name: JOHN MENDOZA SONJA Room: [facility]#: [id number] Admission: 07/09/21 Attend Phys: Connor Williamson II Discharge: Date of : 63 Report #: [id number] THIS REPORT FOR: cc: Sonja Moreno Michelle RNP Greiner, Robert F. II DO ~ DATE OF SURGERY: 07/09/2021 PREOPERATIVE DIAGNOSIS: Right knee lateral tracking patella. POSTOPERATIVE DIAGNOSES: 1. Lateral tracking patella. 2. Grade 3 chondromalacia of medial femoral condyle. PROCEDURE PERFORMED: 1. Right knee arthroscopic surgery with lateral release. 2. Abrasion chondroplasty of medial femoral condyle down to the bone. SURGEON: Connor Williamson II, D.O. [employer] COUNSELORS: ROSMERY Chin. ANESTHESIA: Per operative record. ESTIMATED BLOOD LOSS: Minimal. ANTIBIOTICS: Per operative record. DRAINS: None. COMPLICATIONS: None. CONDITION: The patient stable to recovery room. DESCRIPTION OF PROCEDURE: The patient was taken to the operative suite, placed supine on the table, given appropriate anesthesia. The patient's affected lower extremity was sterilely prepped and draped with well-padded knee arthroscopic tubbs. Surgery began by midline portal incision. The arthroscope was advanced in the joint. There was a grade 3 chondromalacia to the medial femoral condyle. Utilizing shaver, an abrasion chondroplasty performed on bleeding bone and smoothed with Coblation wand. Medial meniscus probed shown to be intact. The lateral meniscus was probed shown to be intact. The patella ____ lateral tracking with fixed lateral tilt and translation. Utilizing cautery wand, a lateral release was performed along the lateral patellar retinaculum. This was shown to have improved alignment and decreased patellar tilt and translation. ACL and PCL intact. Final irrigation was performed[place] [address] OPERATIVE REPORT Name: JOHN MENDOZA Room: [facility]#: [id number] Admission: 07/09/21 Attend Phys: Connor Williamson II Discharge: Date of : 63 Report #: [id number] endoscopic fluid, closed with 4-0 nylon in simple fashion. Dermabond dressing applied. The patient transported to recovery in stable condition. Counts were correct x 2. <ELECTRONICALLY SIGNED> By: Connor Williamson II, DO 07/12/21 1043 2105 [id number] Williamson II, DO /nt
== END | disposition home or self-care (01) ==
LOC: M.SUR 06:06
PROVIDERS: ATTEND Orthopaedic Surgery
DX: M22.2X2 Patellofemoral disorders, left knee (principal); M94.261 Chondromalacia, right knee; J44.9 Chronic obstructive pulmonary disease, unspecified; Z98.890 Other specified postprocedural states; Z79.899 Other long term (current) drug therapy; Z20.822 Contact with and (suspected) exposure to COVID-19; Z88.8 Allergy status to other drugs, medicaments and biological substances